=== PATIENT | female | born 1940 | race Caucasian/White ===

== ENCOUNTER 2019-09-17 15:54 | Emergency (ER) | payer SELFPAY ==
[~2019-09-17] VITALS: Ht 152.4 cm; Wt 90.7 kg
--- NOTE | 2019-09-17 16:08 | NUR ---
CALLED PT NAME TO LOBBY, NO ANSWER
--- NOTE | 2019-09-17 16:20 | NUR ---
CALLED PT NAME TO LOBBY, NO ANSWER
[2019-09-17 16:52] VITALS: Ht 152.4 cm; Wt 90.7 kg
[2019-09-17 18:30] LABS: BASOPHIL % 0.2 % (0-2); PLATELET COUNT 166 x10^3mcL (130-400); RED CELL DISTRIBUTION WIDTH 16.7 % (11.5-14.5)
[2019-09-17 18:37] LABS: CALCIUM 7.9 mg/dL (8.5-10.1); CARBON DIOXIDE 29.6 mmol/L (21-32); CHLORIDE SERUM 93 mmol/L (98-107); CREATININE SERUM 0.8 mg/dL (0.6-1.0); GLUCOSE SERUM 124 mg/dL (74-106); POTASSIUM SERUM 4.6 mmol/L (3.5-5.1); SODIUM SERUM 128 mmol/L (136-145)
[2019-09-17 18:42] LABS: ALBUMIN 3.2 g/dL (3.4-5.0); ALKALINE PHOSPHATASE 93 U/L (46-116); ALT/SGPT 33 U/L (14-59); AST/SGOT 23 U/L (15-37); BILIRUBIN TOTAL 1.1 mg/dL (0.20-1.00); TOTAL PROTEIN, SERUM 7.5 g/dL (6.4-8.2)
--- NOTE | 2019-09-17 18:52 | NUR ---
PT ARRIVED TO ED BIB FAMILY WITH COMPLAINTS OF BACK PAIN X 4 DAYS AND NUMBNESS TO ARMS X TODAY. PT LOOKS TO BE SOB AT TIMES WITH EXCERTION, PT SATTING AT 90% ON ROOM AIR. PT PLACED ON 2L NC AND SATTING AT 97% AT THIS TIME. PT HAS NONPRODUCTIVE COUGH X JANUARY. MSE COMPLETED BY DR. BOWIE. PT ASSISTED TO THE GURNEY AND PUT INTO GOWN AND HOOKED UP TO [facility]. WILL CONTINUE TO [facility].
--- NOTE | 2019-09-17 18:54 | NUR ---
STRAIGHT CATH PT TO COLLECT URINE, PT COOPERATIVE
--- NOTE | 2019-09-17 19:04 | NUR ---
PT IS LAYING DOWN IN BED WITH HOB UP RESTING. PT LOOKS TO BE IN NO ACUTE DISTRESS AT THIS TIME. RESPIRATIONS EVEN AND UNLABORED ON 2L NC. IV SITE PATENT AND INFUSING. SIDE RAILS UP X2. WILL ENDORSE TO ONCOMING SHIFT.
[2019-09-17 19:10] LABS: UA SPECIFIC GRAVITY >=1.030 (1.005-1.035); microscopic required? YES; urine erythrocyte NEGATIVE (NEGATIVE)
--- NOTE | 2019-09-17 19:10 | NUR ---
REPORT RECEIVED FROM JONY BERNARD FOR CONTINUITY OF CARE. PATIENT IN STABLE CONDITION. WILL CONTINUE TO MONITOR.
--- NOTE | 2019-09-17 20:37 | NUR ---
PATIENT APPEARS ALTERED, DIAPHORETIC, AND RESTLESS. PATIENT MOVING AROUND IN BED. DR. BOWIE MADE AWARE. HR: 116 BPM. RR: 29 BPM. WILL CONTINUE TO MONITOR.
--- NOTE | 2019-09-17 20:44 | NUR ---
GAVE PT REPORT TO JONY NAIDU, PT WILL BE TAKEN UP TO TELE FLOOR FOR FURTHER CARE
--- NOTE | 2019-09-17 21:36 | NUR ---
REPORT GIVEN TO JUAN, EXT. [id number], FOR CONTINUITY OF CARE. PATIENT AWARE OF BEING ADMITTED.
[2019-09-17 21:39] LABS: C REACTIVE PROTEIN 34.6 mg/dL (<=0.9)
[2019-09-17 22:26] VITALS: BP 105/67
== END 2019-09-17 22:26 | disposition left against medical advice (07) ==
LOC: ED 15:54 → DU 20:55 → ED 22:26
PROVIDERS: Emergency Medicine
DX: J18.9 Pneumonia, unspecified organism (principal); M54.5 Low back pain; I10 Essential (primary) hypertension; R31.9 Hematuria, unspecified; Z20.828 Contact with and (suspected) exposure to other viral communicable diseases; M79.602 Pain in left arm
CPT/HCPCS: 36600; 82962; 83880; 85378; 87804; J0456; J0696; J1885; J7050; J7060; Q0092; U0003-CS